=== PATIENT | male | born 1960 | race Caucasian/White ===

== ENCOUNTER 2016-10-02 22:41 | Emergency (ER) | payer BC ==
[2016-10-02 23:16] LABS: BASO # 0.2 K/uL (0.0-0.2); EOS # 0.4 K/uL (0.0-0.7); EOS % 2.4 % (0.0-4.0); LYMPH # 4.4 K/uL (1.0-4.3); LYMPH % 24.4 % (20.0-40.0); MEAN CELL VOLUME 77.8 fL (80.0-94.0); MEAN CORPUSCULAR HGB CONC 32.1 g/dL (33.0-37.0); MEAN PLATELET VOLUME 8.8 fL (7.2-11.7); MONO # 1.2 K/uL (0.0-0.8); MONO % 6.7 % (0.0-10.0); NRBC % 0.1 % (0.0-2.0); RED CELL DISTRIBUTION WIDTH 14.3 % (11.5-14.5); WHITE BLOOD COUNT 18.2 K/uL (4.8-10.8)
[2016-10-02] MEDS ORDERED: Iodixanol 320 MG/ML 100 ML BOTTLE IV ONE (23:19)
[2016-10-02 23:26] LABS: CHLORIDE 99 mmol/L (98-107); POTASSIUM 3.8 mmol/L (3.6-5.2); SODIUM 132 mmol/L (132-148)
[2016-10-02 23:28] LABS: ALB/GLOB RATIO 1.1 (1.0-2.1); AST/SGOT 49 U/L (17-59); BILIRUBIN,TOTAL 0.7 mg/dL (0.2-1.3); CARBON DIOXIDE 20 mmol/L (22-30); GFR AFRICAN-AMERICAN > 60; TOTAL PROTEIN 7.3 g/dL (6.3-8.3)
[2016-10-02 23:29] LABS: ALKALINE PHOSPHATASE 109 U/L (38-126); ALT/SGPT 85 U/L (21-72); BLOOD UREA NITROGEN 11 mg/dL (9-20); CALCIUM 8.8 mg/dl (8.6-10.4); GLUCOSE,RANDOM 138 mg/dL (75-110)
[2016-10-03] MEDS ORDERED: Piperacillin/Tazobact 3.375 gm 100 ML IV STA (00:20)
[2016-10-03] MEDS ORDERED: Piperacillin/Tazobact 3.375 gm 100 ML IVPB ONE (00:24)
--- NOTE | 2016-10-03 00:30 | C.PDOC ---
History Of Present Illness A 55 y/o male s/p aortic valve replacement surgery at [facility] last week, c/o not feeling well, dry non-productive cough, and chest discomfort that began today. Chest discomfort is worse with cough. Patient is compliant with his medications. Denies fever, chills, SOB, lower extremity pain, diaphoresis, light headedness, palpitations, abdominal pain, or any other complaints. Time Seen by Provider: 10/02/16 23:06 Chief Complaint (Nursing): Shortness Of Breath History Per: Patient History/Exam Limitations: no limitations Onset/Duration Of Symptoms: Hrs Current Symptoms Are (Timing): Still Present Quality: Other (Discomfort) Exacerbating Factor(s): Coughing Current Respiratory Medications: See Home Med List Severity: Mild Associated Symptoms: denies: Fever, Chills, Sweating, Leg/Calf Pain, Light- headedness Reports Recently: Hospitalized Recent travel outside of the [place]: No Additional History Per: Patient Past Medical History Reviewed: Historical Data, Nursing Documentation, Vital Signs Vital Signs: Last Vital Signs Temp 98.5 F 10/02/16 22:46 Pulse 96 H 10/02/16 22:46 Resp 22 10/02/16 23:37 BP 140/84 10/02/16 23:29 Pulse Ox 97 10/03/16 00:47 - Medical History PMH: HTN Family History: States: Unknown Family Hx - Social History Hx Alcohol Use: No Hx Substance Use: No Review Of Systems Except As Marked, All Systems Reviewed And Found Negative. Constitutional: Positive for: Other (Not feeling well). Negative for: Fever, Chills, Sweats Cardiovascular: Positive for: Chest Pain (Discomfort). Negative for: Palpitations, Light Headedness Respiratory: Positive for: Cough. Negative for: Shortness of Breath Gastrointestinal: Negative for: Abdominal Pain Musculoskeletal: Negative for: Leg Pain, Foot Pain Physical Exam - Physical Exam Appears: Non-toxic, No Acute Distress, Chronically Ill Skin: Warm, Dry Head: Atraumatic, Normacephalic Oral Mucosa: Moist Throat: Normal, No Erythema, No Exudate Neck: Supple Chest: Other (Small patch bandage upper sternum. No midline sternectomy scar.) Cardiovascular: Rhythm Regular, Murmur (Hollow systolic murmur) Respiratory: Normal Breath Sounds, No Rales, No Rhonchi, No Wheezing Gastrointestinal/Abdominal: Soft, No Tenderness Back: No CVA Tenderness Extremity: Normal ROM, No Pedal Edema, Capillary Refill (<2secs) Neurological/Psych: Oriented x3, Normal Speech, Normal Cognition Gait: Steady ED Course And Treatment - Laboratory Results Result Diagrams: 10/02/16 23:12 10/02/16 23:12 Lab Interpretation: Abnormal (++ leukocytosis and elev plts, anemia) ECG: Interpreted By Me ECG Rhythm: Sinus Rhythm ECG Interpretation: Normal Rate From EC O2 Sat by Pulse Oximetry: 97 (RA) Pulse Ox Interpretation: Normal - Radiology CXR: Interpreted by Me CXR Interpretation: Yes: Heart Size (+ megaly, s/p sternotomy and AVR, + small b /l effusions) Progress Note: lopressor PO Reevaluation Time: 00:31 Reassessment Condition: Improved - Physician Consult Information Outcome Of Conversation: 0030: d/w Dr. Antonia Clancy Thoracic Surgeon @ [facility] in [place], who performed this pt's surgery,. ok with eval, CT and Zosyn IV and will accept the pt in transfer after our eval for best continuity of this pt's care. Medical Decision Making Medical Decision Making: Impression: A 55 y/o male c/o not feeling well, dry non-productive cough, and chest discomfort that began today. s/p aortic valve replacement surgery at [facility] last week, Plans: * EKG * CT angio chest * CXR * Blood work up * Lopressor * UA * IV fluids 0030: leukocytosis and dry cough of ? etiology 1 week after elective AVR for Aortic Stenosis @ [facility] with Dr. Aston Keen empirically started for leukocytosis in light of recent hospitalization. No new ACEI's to suspect GISELA related cough. Plan: CTA and transfer to [facility]- Dr. Clancy will accept. [phone] personal cell Disposition - Disposition Disposition Time: 00:30 Condition: GOOD Forms: [facility] (Cuban) - Clinical Impression Clinical Impression: Cough, S/P aortic valve replacement - Scribe Statement The provider has reviewed the documentation as recorded by the Scribe Анна thapa All medical record entries made by the Scribe were at my direction and personally dictated by me. I have reviewed the chart and agree that the record accurately reflects my personal performance of the history, physical exam, medical decision making, and the department course for this patient. I have also personally directed, reviewed, and agree with the discharge instructions and disposition. Physician Patient Turnover Patient Signed Over To: Mat Dawn Handoff Comments: f/u CTA and plan to transfer to [facility] for Dr. Antonia Clancy [phone] cell
[2016-10-03 00:44] LABS: VENOUS BLOOD GAS BASE EXCESS -1.1 mmol/L (0.0-2.0); VENOUS BLOOD GAS PCO2 34 mmHg (40-60); VENOUS BLOOD PH 7.43 (7.32-7.43)
[2016-10-03] MEDS ORDERED: Vancomycin 1 GM 1 GM/250 ML BAG IVPB ONE ×2 (01:30→01:34)
[2016-10-03 01:40] VITALS: TEMP 98.9
[2016-10-03 01:51] LABS: RBC URINE < 1 /hpf (0-3); URINE BILIRUBIN NEGATIVE (NEGATIVE); URINE BLOOD NEGATIVE (NEGATIVE); URINE COLOR Yellow (YELLOW); URINE GLUCOSE (UA) NORMAL (Normal); URINE KETONE NEGATIVE (NEGATIVE); URINE LEUKOCYTE ESTERASE NEG Leu/uL (Negative); URINE PROTEIN NEGATIVE (NEGATIVE); URINE UROBILINOGEN NORMAL mg/dL (0.2-1.0); WBC URINE < 1 /hpf (0-5)
--- NOTE | 2016-10-03 02:13 | CT ---
EXAM: CT Angiography Chest With Intravenous Contrast EXAM DATE/TIME: 10/02/2016 11:09 PM CLINICAL HISTORY: 55 years old, male; Pain; Chest pain; Prior surgery; Patient HX: Valve replaced one week ago; Additional info: SOB s/o avr 1 week ago, ? leak/pericard/pe TECHNIQUE: Axial computed tomographic angiography images of the chest with intravenous contrast using pulmonary embolism protocol. All CT scans at this facility use one or more dose reduction techniques, viz.: automated exposure control; ma/kV adjustment per patient size (including targeted exams where dose is matched to indication; i.e. head); or iterative reconstruction technique. MIP reconstructed images were created and reviewed. Coronal and sagittal reformatted images were created and reviewed. CONTRAST: 100 mL of [id number] administered intravenously. COMPARISON: No relevant prior studies available. FINDINGS: PULMONARY ARTERIES: Contrast opacification of the pulmonary arteries is adequate, and there are no filling defects seen to suggest pulmonary embolism. AORTA: Prosthetic aortic valve is in place. There appear to be postoperative changes involving the ascending thoracic aorta. No evidence of aortic dissection or significant periaortic hemorrhage. LUNGS: Areas of dense consolidation in the lung bases bilaterally and in the right upper lobe posteriorly, suspicious for scattered areas of pneumonia (versus atelectasis). No evidence of diffuse pulmonary vascular congestion. PLEURAL SPACE: Small bilateral pleural effusions. No pneumothorax is seen. HEART: Small to moderate pericardial effusion. Coronary artery calcification. MEDIASTINUM: Small amount of fluid in the anterior mediastinum. This may represent residual post operative fluid. There is no walled off fluid collection seen to suggest a mediastinal abscess. No evidence of pneumomediastinum. BONES/JOINTS: Best seen on image 67 of series 602, there is a mildly comminuted, nondisplaced recent fracture of the sternum inferiorly. There is a metallic plate and screw device in the sternum at the level of this fracture. Evidence of recent sternotomy. SOFT TISSUES: Diffuse, mild subcutaneous edema in the anterior chest wall soft tissues, overlying the sternotomy. This most likely represents LYMPH NODES: No evidence of diffuse lymphadenopathy. IMPRESSION: - Small amount of fluid in the anterior mediastinum. This could represent residual post operative fluid, although mediastinitis is difficult to exclude. There is no evidence of mediastinal abscess or gas. Recommend clinical correlation. - Small bilateral pleural effusions. - Small to moderate pericardial effusion. - Lung findings suspicious for a scattered, bilateral pneumonia (versus atelectasis). - Recent fracture of the lower sternum. This is presumably a known finding, as there appears to be a plate and screw fixation device transfixing it. Recommend clinical correlation. - See above for remaining findings.
[2016-10-03 02:26] LABS: VENOUS BLOOD GAS PCO2 32 mmHg (40-60); VENOUS BLOOD PH 7.45 (7.32-7.43)
[2016-10-03 03:16] VITALS: BP 110/72; PULSE 81; RESP 21; O2SAT 99
--- NOTE | 2016-10-03 08:39 | RAD ---
PROCEDURE: CHEST RADIOGRAPH, 1 VIEW HISTORY: SOB COMPARISON: None available. FINDINGS: LUNGS: There is mild pulmonary venous congestion. PLEURA: No pneumothorax. There are small pleural effusions. CARDIOVASCULAR: The heart is normal in size. Status post CABG OSSEOUS STRUCTURES: No significant abnormalities. VISUALIZED UPPER ABDOMEN: Normal. OTHER FINDINGS: None. IMPRESSION: Mild pulmonary venous congestion and small pleural effusions.
--- NOTE | 2016-10-05 17:39 | CARD ---
APPROVED REPORT EKG Measurement Heart [id number] <Conclusion> Sinus rhythm with premature supraventricular complexes prolonged QTc interval Otherwise normal ECG
== END 2016-10-03 03:21 | disposition short-term general hospital (02) ==
LOC: C.ER 22:41
DX: J18.9 Pneumonia, unspecified organism (principal); Z95.2 Presence of prosthetic heart valve
CPT/HCPCS: 71010; 71275; 80053; 81001; 82803; 82948; 83880; 84443; 84484; 85025; 87040; 87086; 93005; 96365; 99285; J2543; J3370; Q9967

== ENCOUNTER 2018-04-13 10:10 | Outpatient (CLI) | payer OTHER | END 2018-04-13 10:11 | disposition home or self-care (01) | LOC: C.NUCMED 10:10 ==